=== PATIENT | female | born 1975 | race Caucasian/White ===

== ENCOUNTER 2022-02-16 07:34 | Emergency (ER) | payer OTHER, SELFPAY ==
[2022-02-16] MEDS ORDERED: HYDROCODONE/APAP 5/325 MG TAB ONE (07:59)
--- NOTE | 2022-02-16 10:42 | RAD REPORT ---
EXAM DESCRIPTION: RAD - Knee Left 3 View - 02/16/2022 8:25 am CLINICAL HISTORY: Left knee pain FINDINGS: No fracture or dislocation is seen. If patient continues to have symptoms to suggest an occult fracture, ligamentous or meniscal injury M RI would be recommended
--- NOTE | 2022-02-16 10:49 | ER ---
Nurse's Notes [facility] Name: Shira Valle Age: 46 yrs Sex: Female : 1975 Arrival Date: 02/16/2022 Time: 07:39 Bed 5 Private MD: Diagnosis: Pain in knee Presentation: 02/16 07:54 Chief complaint: Patient states: " I slipped walking down the aisle at [facility]'s mb9 yesterday and went airborne and slammed my left side on the floor." Pt denies LOC and hitting head. Coronavirus screen: At this time, the client does not indicate any symptoms associated with coronavirus-19. Ebola Screen: No symptoms or risks identified at this time. Initial Sepsis Screen: Does the patient meet any 2 criteria? No. Patient's initial sepsis screen is negative. Does the patient have a suspected source of infection? No. Patient's initial sepsis screen is negative. Risk Assessment: Do you want to hurt yourself or someone else? Patient reports no desire to harm self or others. Onset of symptoms was February 15, 2022. 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 - Social history:: Smoking status: Patient reports the use of cigarette tobacco products, smokes one-half pack cigarettes per day, Patient uses alcohol, only on a social basis. Screenin:03 Abuse screen: Denies threats or abuse. Nutritional screening: No deficits noted. mb9 Tuberculosis screening: No symptoms or risk factors identified. Fall Risk Fall in past 12 months (25 points). Assessment: 07:50 General: Appears uncomfortable, Behavior is calm, cooperative, appropriate for age. mb9 07:50 Pain: Complains of pain in left leg Pain does not radiate. Pain currently is 9 out of mb9 10 on a pain scale. Quality of pain is described as aching, sharp, shooting, Pain began 1 day ago. Aggravated by increased activity, repositioning, weight bearing. Neuro: Temple Agitation-Sedation Scale (RASS): 0 - Alert and Calm Level of Consciousness is awake, alert, obeys commands, Oriented to person, place, time, situation, Appropriate for age. Cardiovascular: Heart tones S1 S2 present Rhythm is regular. Respiratory: Airway is patent Respiratory effort is even, unlabored, Respiratory pattern is regular, symmetrical, Breath sounds are clear bilaterally. GI: Abdomen is flat, non-distended. : No signs and/or symptoms were reported regarding the genitourinary system. EENT: No signs and/or symptoms were reported regarding the EENT system. Derm: Skin is intact, Skin is dry, Skin is Skin temperature is warm Bruising that is on left knee and thomas. Musculoskeletal: Range of motion: limited in left knee. 08:22 Pain: Complains of pain in left knee and left leg Pain currently is 5 out of 10 on a mb9 pain scale. Quality of pain is described as throbbing. 10:18 General: Appears in no apparent distress. comfortable, Behavior is calm, cooperative, mb9 appropriate for age. Pain: Complains of pain in left knee and left leg Quality of pain is described as throbbing. Neuro: Level of Consciousness is awake, alert, obeys commands, Oriented to person, place, time, situation, Appropriate for age. Cardiovascular: Rhythm is regular. Respiratory: Airway is patent. 11:00 Reassessment: No changes from previously documented assessment. mb9 Vital Signs: 07:54 BP 134 / 109; Pulse 94; Resp 16; Temp 98.2(O); Pulse Ox 100% on R/A; Weight 59.42 kg; mb9 Height 5 ft. 4 in. (162.56 cm); Pain 9/10; 08:23 BP 141 / 119; Pulse 80; Resp 16; Pulse Ox 100% on R/A; Pain 5/10; mb9 09:45 BP 152 / 109; Pulse 76; Resp 18; Pulse Ox 98% on R/A; mb9 10:19 BP 126 / 96; Pulse 86; Resp 16; Pulse Ox 100% on R/A; mb9 11:00 BP 127 / 98; Pulse 84; Resp 18; Pulse Ox 100% on R/A; mb9 07:54 Body Mass Index 22.49 (59.42 kg, 162.56 cm) mb9 ED Course: 07:39 Patient arrived in ED. rg4 07:41 Patient has correct armband on for positive identification. Bed in low position. Call mb9 light in reach. Side rails up X 1. Client placed on continuous cardiac and pulse oximetry monitoring. NIBP monitoring applied. 07:41 Arm band placed on. mb9 07:43 Keith Killian DO is Attending Physician. ms3 07:53 Aminata Weber, RN is Primary Nurse. mb9 07:56 Triage completed. mb9 08:04 No provider procedures requiring assistance completed. mb9 08:26 Knee Left 3 View XRAY In Process Unspecified. EDMS 10:48 Justo Jones MD is Referral Physician. ms3 11:01 Patient did not have IV access during this emergency room visit. mb9 Administered Medications: 08:00 Drug: HYDROcodone-acetaminophen 5 mg-325 mg 1 tabs Route: PO; mb9 08:57 Follow up: Response: No adverse reaction mb9 Medication: 08:03 VIS not applicable for this client. mb9 Outcome: 10:48 Discharge ordered by MD. ms3 11:01 Discharged to home with crutches. mb9 11:01 Condition: stable 11:01 Discharge instructions given to patient, Instructed on discharge instructions, follow up and referral plans. Demonstrated understanding of instructions, follow-up care, medications, Prescriptions given X 1. 11:27 Patient left the ED. mb9 Signatures: Dispatcher [employer] EDMS Rhonda Everett rg4 Keith Killian DO DO ms3 Aminata Weber RN RN mb9 Corrections: (The following items were deleted from the chart) 08:00 07:54 Chief complaint: Patient states: " I slipped walking down the aisle at [facility]'s mb9 yesterday and went airborne and slammed on the floor." Pt denies LOC and hitting head mb9 08:04 08:02 Arm band placed on mb9 mb9
--- NOTE | 2022-02-16 10:49 | EDPHYS ---
Physician Documentation [facility] Name: Shira Valle Age: 46 yrs Sex: Female : 1975 Arrival Date: 02/16/2022 Time: 07:39 Bed 5 Private MD: ED Physician Keith Killian HPI: 02/16 08:20 This 46 yrs old Female presents to ER via Ambulatory with complaints of Fall Injury. ms3 08:20 Details of fall: The patient fell from an upright position, while standing. Onset: The ms3 symptoms/episode began/occurred acutely, yesterday. Associated injuries: The patient sustained left knee, painful injury. Severity of symptoms: At their worst the symptoms were severe, in the emergency department the symptoms are unchanged. The patient has not experienced similar symptoms in the past. 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 - Social history:: Smoking status: Patient reports the use of cigarette tobacco products, smokes one-half pack cigarettes per day, Patient uses alcohol, only on a social basis. ROS: 08:20 Constitutional: Negative for fever, and chills. Neck: Negative for injury, pain, and ms3 swelling, Cardiovascular: Negative for chest pain, and palpitations. 08:20 Respiratory: Negative for shortness of breath, cough, wheezing, and pleuritic chest pain, Abdomen/GI: Negative for abdominal pain, nausea, vomiting, diarrhea, and constipation. 08:20 MS/extremity: Positive for injury or acute deformity, contusion, pain, of the left knee. 08:20 All other systems are negative. Exam: 08:20 Constitutional: This is a well developed, well nourished patient who is awake, alert, ms3 and in no acute distress. Head/Face: Normocephalic, atraumatic. Neck: Trachea midline, no cervical lymphadenopathy. Supple, full range of motion without nuchal rigidity, or vertebral point tenderness. No Meningismus. Chest/axilla: Normal chest wall appearance and motion. Nontender with no deformity. Cardiovascular: Regular rate and rhythm with a normal S1 and S2. No gallops, murmurs, or rubs. Normal PMI, no JVD. No pulse deficits. Respiratory: Lungs have equal breath sounds bilaterally, clear to auscultation and percussion. No rales, rhonchi or wheezes noted. No increased work of breathing, no retractions or nasal flaring. Abdomen/GI: Soft, non-tender, with normal bowel sounds. No distension or tympany. No guarding or rebound. No evidence of tenderness throughout. 08:20 Musculoskeletal/extremity: Extremities: noted in the left knee: contusion, pain, tenderness. Vital Signs: 07:54 BP 134 / 109; Pulse 94; Resp 16; Temp 98.2(O); Pulse Ox 100% on R/A; Weight 59.42 kg; mb9 Height 5 ft. 4 in. (162.56 cm); Pain 9/10; 08:23 BP 141 / 119; Pulse 80; Resp 16; Pulse Ox 100% on R/A; Pain 5/10; mb9 09:45 BP 152 / 109; Pulse 76; Resp 18; Pulse Ox 98% on R/A; mb9 10:19 BP 126 / 96; Pulse 86; Resp 16; Pulse Ox 100% on R/A; mb9 11:00 BP 127 / 98; Pulse 84; Resp 18; Pulse Ox 100% on R/A; mb9 07:54 Body Mass Index 22.49 (59.42 kg, 162.56 cm) mb9 MDM: 07:52 Patient medically screened. ms3 08:20 Differential diagnosis: contusion, fracture, sprain, strain. ms3 10:51 Data reviewed: vital signs, nurses notes, radiologic studies, and as a result, I will ms3 discharge patient. Counseling: I had a detailed discussion with the patient and/or guardian regarding: the historical points, exam findings, and any diagnostic results supporting the discharge/admit diagnosis, radiology results, the need for outpatient follow up, to return to the emergency department if symptoms worsen or persist or if there are any questions or concerns that arise at home. ED course: Discussed x-ray results with patient and . Patient to follow-up with orthopedics in 2 to 3 days. Patient understands and agrees with plan. All questions were answered. Return precautions discussed include worsening symptoms, or any other concerns. No signs of compartment syndrome present at discharge. On reevaluation patient is alert and orient x4, in no apparent distress, nontoxic, sensation and left lower extremity intact, pulses left lower extremity intact. 02/16 07:53 Order name: Knee Left 3 View XRAY; Complete Time: 10:45 ms3 02/16 10:45 Order name: Knee Immobilizer; Complete Time: 11:00 ms3 02/16 10:45 Order name: Crutches; Complete Time: 11:00 ms3 Administered Medications: 08:00 Drug: HYDROcodone-acetaminophen 5 mg-325 mg 1 tabs Route: PO; mb9 08:57 Follow up: Response: No adverse reaction mb9 Disposition Summary: 02/16/22 10:48 Discharge Ordered Location: Home ms3 Condition: Stable ms3 Diagnosis - Pain in knee ms3 Followup: ms3 - With: Justo Jones MD - When: 2 - 3 days - Reason: Recheck today's complaints Discharge Instructions: - Discharge Summary Sheet ms3 - Acute Knee Pain, Adult ms3 Forms: - Medication Reconciliation Form ms3 - Thank You Letter ms3 - Antibiotic Education ms3 - Prescription Opioid Use ms3 Prescriptions: - Tylenol-Codeine #3 300 mg-30 mg Oral - take 1 tablet by ORAL route every 6 hours; 12 tablet; Refills: 0, Product ms3 Selection Permitted Signatures: Dispatcher [employer] EDKeith Velasco DO DO ms3 Aminata Weber RN RN mb9
[2022-02-16 11:32] VITALS: TEMP 98.2
[2022-02-16 11:35] VITALS: O2SAT 100
[2022-02-16 11:36] VITALS: BP 127/98
== END 2022-02-16 11:27 | disposition home or self-care (01) ==
LOC: ER 07:34
DX: M25.562 Pain in left knee (principal); Z88.0 Allergy status to penicillin
CPT/HCPCS: 99283